=== PATIENT | female | born 2000 | race Caucasian/White ===

== ENCOUNTER 2019-07-19 20:53 | Emergency (ER) | payer BC ==
[2019-07-20] MEDS ORDERED: Lidocaine 2% VISCOUS* 15 ML UDC PO ONE (00:21)
[2019-07-20 00:44] LABS: Rapid Strep Molecular Negative (Negative)
--- NOTE | 2019-07-20 00:46 | ED ---
Throat Pain/Nasal Congestion - HPI Summary HPI Summary: Patient with history of bulimia complains of 2 episodes of self induced vomiting with a toothbrush over the past 3 days, with subsequent chest pain and sore throat. First episode of self-induced vomiting 3 days ago, second episode yesterday. States small amount of blood with second episode of vomiting. Chest pain is sternal, lasted 2 hours today, resolved prior to arrival in the ED. Denies fever, cough, SOB, abdominal pain, diarrhea, change in urine, change in BM. Medical history is anxiety, bulimia. - History of Current Complaint Chief Complaint: EDNauseaVomitDiarrh Time Seen by Provider: 07/19/19 23:06 Hx Obtained From: Patient Onset/Duration: Gradual Onset, Lasting Hours Severity: Mild Associated Signs And Symptoms: Positive: Negative Cough: None - Allergies/Home Medications Allergies/Adverse Reactions: Allergies Allergy/AdvReac Type Severity Reaction Status Date / Time ampicillin Allergy Hives Verified 07/19/19 21:20 clarithromycin [From Biaxin] Allergy Hives Verified 07/19/19 21:20 PMH/Surg Hx/FS Hx/Imm Hx Endocrine/Hematology History: Denies: Hx Anticoagulant Therapy Cardiovascular History: Denies: Hx Pacemaker/ICD History: Denies: Hx Dialysis Sensory History: Denies: Hx Eye Prosthesis Opthamlomology History: Denies: Hx Legally Blind EENT History: Denies: Hx Deafness Neurological History: Denies: Hx Dementia - Immunization History Immunizations Up to Date: Yes Infectious Disease History: No Infectious Disease History: Denies: Traveled Outside the [place] in Last 30 Days - Family History Known Family History: Positive: Non-Contributory - Social History Alcohol Use: Occasionally Substance Use Type: Reports: None Smoking Status (MU): Never Smoked Tobacco Review of Systems Constitutional: Negative Eyes: Negative Positive: Sore Throat Positive: Chest Pain Respiratory: Negative Positive: Vomiting Genitourinary: Negative Musculoskeletal: Negative Skin: Negative Neurological: Negative Psychological: Normal All Other Systems Reviewed And Are Negative: Yes Physical Exam Triage Information Reviewed: Yes Vital Signs On Initial Exam: Initial Vitals Temp Pulse Resp BP Pulse Ox 98.3 F 70 16 108/77 100 07/19/19 20:56 07/19/19 20:56 07/19/19 20:56 07/19/19 20:56 07/19/19 20:56 Vital Signs Reviewed: Yes Appearance: Positive: Well-Appearing Skin: Positive: Warm Head/Face: Positive: Normal Head/Face Inspection Eyes: Positive: Normal ENT: Positive: Normal ENT inspection Neck: Positive: Supple Respiratory/Lung Sounds: Positive: Clear to Auscultation Cardiovascular: Positive: Normal Abdomen Description: Positive: Nontender Musculoskeletal: Positive: Normal Neurological: Positive: Normal Psychiatric: Positive: Normal AVPU Assessment: Alert - [place] Coma Scale Best Eye Response: 4 - Spontaneous Best Motor Response: 6 - Obeys Commands Best Verbal Response: 5 - Oriented Coma Scale Total: 15 Procedures - Sedation Patient Received Moderate/Deep Sedation with Procedure: No Diagnostics - Vital Signs Vital Signs Temp Pulse Resp BP Pulse Ox 07/20/19 00:19 69 16 99 07/19/19 20:56 98.3 F 70 16 108/77 100 - Laboratory Lab Statement: Any lab studies that have been ordered have been reviewed, and results considered in the medical decision making process. EENT Course/Dx - Course Course Of Treatment: Patient with history of bulimia complains of 2 episodes of self induced vomiting with a toothbrush over the past 3 days, with subsequent chest pain and sore throat. First episode of self-induced vomiting 3 days ago, second episode yesterday. States small amount of blood with second episode of vomiting. Chest pain is sternal, lasted 2 hours today, resolved prior to arrival in the ED. Denies fever, cough, SOB, abdominal pain, diarrhea, change in urine, change in BM. Medical history is anxiety, bulimia. Vital signs within normal limits. Strep negative. Chest x-ray unremarkable. EKG sinus rhythm, heart rate of 63, no prior EKG on file prior EKG on file. - Diagnoses Provider Diagnoses: Throat pain in adult Discharge ED - Sign-Out/Discharge Documenting (check all that apply): Patient Departure - Discharge Plan Condition: Stable Disposition: HOME Prescriptions: Lidocaine 2% VISCOUS* [Xylocaine 2% Viscous*] 15 ml SWISH SPIT Q6H PRN #1 btl PRN Reason: Pain - Mild Referrals: No Primary Care Phys,NOPCP [Primary Care Provider] - Additional Instructions: Use lidocaine as directed for throat pain if necessary. Return to the ED for any worsening symptoms. - Billing Disposition and Condition Condition: STABLE Disposition: Home
[2019-07-20 01:19] VITALS: BP 121/79
== END 2019-07-20 00:55 | disposition home or self-care (01) ==
LOC: ED 20:53
DX: J02.9 Acute pharyngitis, unspecified (principal); F50.2 Bulimia nervosa; R07.9 Chest pain, unspecified; Z88.0 Allergy status to penicillin; F41.9 Anxiety disorder, unspecified
CPT/HCPCS: 71046; 87651; 93005; 99285